=== PATIENT | female | born 1985 | race African-American/Black ===

== ENCOUNTER 2017-09-28 12:39 | Emergency (ER) | payer MEDICARE ==
[~2017-09-28] VITALS: Ht 165.1 cm; Wt 127.0 kg
[2017-09-28] MEDS ORDERED: IBUPROFEN 600MG TABLET PO ONE (14:45)
[2017-09-28 14:50] VITALS: BP 126/79
== END 2017-09-28 16:42 | disposition home or self-care (01) ==
LOC: ER 12:56
DX: M79.631 Pain in right forearm (principal); R56.9 Unspecified convulsions; F17.200 Nicotine dependence, unspecified, uncomplicated
CPT/HCPCS: 73090; 81025; 99284